=== PATIENT | female | born 1955 | race Caucasian/White ===

== ENCOUNTER → 2017-05-07 | Outpatient (CLI) | payer BC, OTHER ==
[~2017-05-07] MED LIST: ALPR-411 PO; ANAS1TAB19 PO; FLUT0.15 NAE; PANT40TA PO; PARO1TAB27 PO
[2017-05-07 14:45] VITALS: BP 124/71; PULSE 80; TEMP 36.6; O2SAT 97
--- NOTE | 2017-05-07 16:15 | Radiation Oncology Follow-Up ---
Radiation Oncology Follow-Up Date of Visit May 07, 2017. Reason For Visit one month follow up and cancer survivorship care plan Radiation Completion Date JUAN DANIEL 04/02/17 Diagnosis (1) Breast cancer of upper-outer quadrant of right female breast Status: Resolved Onset Date: 02/11/2017 Histology Subtype: lobular Permanent Comment: Abnormal right breast mammogram Status post ultrasound-guided core needle biopsy 02/11/2017 Infiltrating lobular carcinoma, grade 1 Estrogen receptor positive, progesterone receptor positive, HER-2/mookie negative Status post lumpectomy and sentinel lymph node biopsy 03/17/2017 Stage pT1b [id number] G1 Status post completion of radiation therapy utilizing 04/02/2017 JUAN DANIEL HDR therapy. She received 3400 cGy. Last Edited By: Elzbieta Galan on May 07, 2017 16:14 History of Present Illness Ms. Oakes is a 62-year-old female without a family history of breast cancer area did she has been followed with serial screening mammograms and these have been unremarkable until her most recent scan on 11/05/2016. This showed a small asymmetry laterally in the right breast on the CC view and a small asymmetry in the upper right breast on the MLO view. Additional mammographic views and right breast ultrasound were recommended. On 12/13/2016 patient underwent a right breast diagnostic mammogram and targeted ultrasound. This demonstrated a persistent small irregular shaped mass lesion in the upper slightly outer right breast, middle depth. Ultrasound demonstrated a small ill-defined hypoechoic shadowing mass lesion in the 11 to 12:00 location of the right breast 5 cm from the nipple. This measured approximately 10 x 10 mm. This was given a BI-RADS Category 4 with recommended biopsy. Patient was ultimately seen by Dr. Cherie Beck for evaluation. She discussed biopsy options and on 02/11/2017 the patient underwent an ultrasound-guided right core breast biopsy. This was performed at the 11 to 12 o'clock position 5 cm from the nipple. This confirmed an infiltrating lobular carcinoma with nuclear grade 1. The lesion was estrogen receptor positive (100%, strong nuclear staining). Progesterone receptors were positive (100%, intermediate intensity of nuclear staining). HER-2/mookie was negative. Patient return to discuss the findings of the biopsy and discussion of further treatment options. Dr. Beck discussed the possibility of accelerated partial breast irradiation utilizing the JUAN DANIEL treatment device. The patient is tentatively scheduled for her sentinel node biopsy and right partial mastectomy on 03/17/2017. If she meets the criteria the JUAN DANIEL device will be placed on . The patient is presenting today to discuss the use of this technique and a detailed discussion of risks, side effects and benefits. It is for this reason the patient is seen in referral. She underwent the lumpectomy and sentinel lymph node biopsy. The lesion was 1 cm in diameter. She was therefore staged at [id number]. [place] lymph node biopsy was negative. A JUAN DANIEL catheter was placed and she return to our office for treatment. She completed treatment 04/02/2017. She received 3400 cGy. Interim History She's been doing well over this past month. She did develop an area of mild erythema in the area of her incision. She denies pain. She's noted no masses and no change of the axilla. She did see Dr. Ellis. He has prescribed antiestrogen therapy. She has not yet started the medication. She plans to started in about one month. She'll be seeing Dr. Beck in 2 months. Currently she does not have follow-up mammograms scheduled. She will have these at [facility] in [place]. She had complained of sinus headache today to the nursing. She does not complain to me about the sinus headache. She does continue to have some fatigue since the completion of her treatment. Allergies Coded Allergies: Rosuvastatin (Verified Allergy, Severe, myalgia severe leg pain diff. walking, 03/12/17) Atorvastatin (Verified Allergy, Intermediate, myalgia, 03/12/17) Pravastatin (Verified Allergy, Intermediate, myalgia, 03/12/17) Shellfish (Verified Allergy, Intermediate, hives, 03/12/17) Simvastatin (Verified Allergy, Intermediate, myalgia, 03/12/17) Ceftriaxone (Verified Adverse Reaction, Severe, anaphylactic shock, 03/12/17 ) Amoxicillin (Verified Adverse Reaction, Intermediate, Nausea .vomiting diarrhea, 03/12/17) Clarithromycin (Verified Adverse Reaction, Intermediate, diarrhea nausea vomiting, 03/12/17) Clavulanic Acid (Verified Adverse Reaction, Intermediate, Nausea .vomiting diarrhea, 03/12/17) Venlafaxine (Verified Adverse Reaction, Mild, nausse headache, 03/12/17) Uncoded Allergies: eerythromycin (Adverse Reaction, Intermediate, diarrhea nausea and vomiting , 03/12/17) zithromycin (Adverse Reaction, Intermediate, diarrhea nausea and vomiting, 03/12/17) Review of Systems Gastrointestinal: Symptoms: WNL GI Comments: Constipation resolved, but had rectal spotting w/this; Oral: Symptoms: No Problems Respiratory: Symptoms: SOB With Exertion Respiratory Comments: Feels SOB w/activities that didn't previously cause it. Feels it's relate Sputum Character: to decreased endurance because not as active as used to be due Other Respiratory: to fatigue since having RT Urinary: Symptoms: WNL Breast: Right Upper Arm Measurement: 31.0 Right Mid Arm Measurement: 25.5 Right Wrist Measurement: 16.5 Left Upper Arm Measurement: 30.0 Left Mid Arm Measurement: 24.8 Left Wrist Measurement: 16.5 Arm Dominence: Right Physical Exam Vital Signs Date Time Temp Pulse Resp B/P (MAP) Pulse Ox O2 Delivery O2 Flow Rate FiO2 05/07/17 14:45 36.6 80 20 124/71 97 Fatigue: None General Appearance: no apparent distress Eyes: normal inspection, EOMI ENT: normal ENT inspection, hearing grossly normal Neck: no adenopathy, thyroid normal Respiratory/Chest: lungs clear, no respiratory distress, no accessory muscle use Breast: Breast examination reveals well-healed incisions of the right breast. There is mild erythema of the skin in the area of the incision. There is no fluctuance. There is no increased warmth to palpation. There are no masses or tenderness and no change of the axilla. Using the [place] score cosmesis she has a good outcome. The left breast showed no masses or tenderness and no axillary adenopathy. Cardiovascular: regular rate, rhythm, no gallop, no murmur Abdomen: non tender Extremities: no pedal edema Neurologic/Psychiatric: no motor/sensory deficits, alert, normal mood/affect Skin: warm/dry Assessment & Plan Plan: She'll be seeing Dr. Beck in 2 months. I am going to defer scheduling of mammography to Dr. Beck. She has her mammograms at [facility] and [place]. She' ll continue follow-up with Dr. Ellis. She plans to start the anti-estrogen therapy in approximately one month. We discussed her feeling of fatigue. This should steadily improve. The skin irritation that was noted should also steadily improve over time. We discussed probable hyperpigmentation that we'll then fade. She was also seen and examined by Dr. May. Today we completed a cancer survivorship care plan. A copy of the document was given to the patient. She was given a survivorship booklet. We asked that she return to our office in 6 months. She may call if she has any questions or concerns in the interim. Assessment & Plan (Attending) ADDENDUM: I agree with note created by Elzbieta Galan PA-C. I reviewed the patient's chart and information with her. I have examined and evaluated the patient. I reviewed relevant clinical information and answered the patient's and /or family's questions. COLLECTIONS SPECIALIST Total Time In Follow-Up I spent 20 minutes speaking to the patient and performing examination. I spent 20 minutes reviewing information, preparing the survivorship document, and completing this note. Total Time (Attending) In Follow-Up I spent 15 minutes examining and counseling the patient. COLLECTIONS SPECIALIST Copy To Cherie Beck M.D.; Ramana Ellis M.D.; David Alexander M.D. Problem Qualifiers (1) Breast cancer of upper-outer quadrant of right female breast: Estrogen receptor status: positive Qualified Codes: C50.411 - Malignant neoplasm of upper-outer quadrant of right female breast; Z17.0 - Estrogen receptor positive status [ER+]
== END | disposition home or self-care (01) ==
LOC: C.ONC 14:25
PROVIDERS: ATTEND Physician Assistant Medical
DX: Z08 Encounter for follow-up examination after completed treatment for malignant neoplasm (principal); Z92.3 Personal history of irradiation; Z85.3 Personal history of malignant neoplasm of breast